=== PATIENT | female | born 1965 | race Caucasian/White ===

== ENCOUNTER 2017-09-16 05:52 | Day surgery (SDC) | payer BC ==
[2017-09-16] MEDS ORDERED: DIPRIVAN 200 MG/20 ML IV ONE (05:53)
[2017-09-16] MEDS ORDERED: Lactated Ringers 1,000 ML IV ONE (06:20)
[2017-09-16] MEDS ORDERED: Lactated Ringers 1,000 ML IV SCH (06:30)
[2017-09-16 11:09] VITALS: BP 143/86; PULSE 56; O2SAT 99
--- NOTE | 2017-09-16 12:47 | OP ---
SURGERY DATE/TIME: 09/16/2017823 PREOPERATIVE DIAGNOSES: 1) Chronic diarrhea. 2) Family history of colon cancer. POSTOPERATIVE DIAGNOSIS: Normal colon. PROCEDURE: Colonoscopy. SURGEON: Jose David Kim M.D. ANESTHESIA: MAC by Aldo Dietz CRNA. ESTIMATED BLOOD LOSS: Minimal. SPECIMENS: Two random cold forceps biopsies taken from the sigmoid colon. DESCRIPTION OF PROCEDURE: After informed written consent was obtained, the patient was taken to the endoscopy suite. She underwent monitored anesthesia and digital rectal exam showed normal sphincter tone and no internal lesions. The scope was inserted into the rectum and sequentially the entire colonic mucosa was traversed. The level of cecum was reached and verified with direct visualization of ileocecal valve. There was a fair amount of liquid stool present. Prep was noted to be fair. Upon withdrawal careful mucosal inspection revealed no obvious mucosal abnormalities. Prior to withdrawal two cold forceps biopsies were taken randomly from the sigmoid colon. Prior to withdrawal retroflexion was within normal limits. The scope was removed and the patient was transferred to the recovery room in good condition.
== END 2017-09-16 11:00 | disposition home or self-care (01) ==
LOC: SDC 05:52
PROVIDERS: ATTEND Family Medicine
PROC: 0DJD8ZZ Inspection of Lower Intestinal Tract, Via Natural or Artificial Opening Endoscopic (ICD-10-PCS; principal; 2017-09-16)
DX: K52.9 Noninfective gastroenteritis and colitis, unspecified (principal); Z80.0 Family history of malignant neoplasm of digestive organs; I10 Essential (primary) hypertension; E03.9 Hypothyroidism, unspecified
CPT/HCPCS: 00810; J2704

== ENCOUNTER 2019-08-28 18:47 | Emergency (ER) | payer BC ==
[2019-08-28] MEDS ORDERED: XYLOCAINE 1% HCL 20 ML MDV IJ ONE (18:48)
[2019-08-28] MEDS ORDERED: Rocephin 1000 MG INJ IM ONE (19:12)
[2019-08-28] MEDS ORDERED: Rocephin 1000 MG INJ ONE (19:20)
--- NOTE | 2019-08-28 20:06 | ERPHSYRPT ---
- History of Present Illness Time Seen by Provider: 08/28/19 19:05 Source: patient Exam Limitations: no limitations Patient Subjective Stated Complaint: pt states she has had a cough for approx 2 weeks. has productive cough. Triage Nursing Assessment: pt alert and oriented. answers questions approp. pt ambulatory with steady gait noted. respirations nonlabored. frequent hacking cough noted, productive with yellow sputum. skin pink warm and dry. Physician History: ppatient presents with the complaint being sick for 2 weeks which started with a cough. Her cough is now productive of white sputum. She been quite hoarse she's been having night sweats. On Friday she went to [facility] and was given Tessalon Perles a steroid shot but is not better. Timing/Duration: week(s) (2) Cough Quality/Degree: severe, productive cough Possible Cause: occasional episodes Modifying Factors: Improves With: activity, nothing Allergies/Adverse Reactions: No Known Drug Allergies Allergy (Verified 08/28/19 19:19) Home Medications: Amitriptyline HCl 100 mg PO BID 08/13/17 [History] Hydrochlorothiazide 25 mg [hydroDIURIL 25 MG] 25 mg PO DAILY 08/13/17 [ History] Ibuprofen 200 mg [Motrin 200 mg] 200 mg PO UD PRN 08/13/17 [History] Levothyroxine Sodium 75 Mcg [Synthroid 75 Mcg] 88 mcg PO DAILY 08/13/17 [ History] Nebivolol HCl [Bystolic] 10 mg PO DAILY 08/13/17 [History] Hx Tetanus, Diphtheria Vaccination/Date Given: Yes Hx Influenza Vaccination/Date Given: Yes Hx Pneumococcal Vaccination/Date Given: No Immunizations Up to Date: Yes - Review of Systems Constitutional: No Fever, No Chills Eyes: No Symptoms Ears, Nose, & Throat: No Symptoms Respiratory: Cough, Dyspnea on Exertion (BERMEO), Wheezing, No Dyspnea Cardiac: No Chest Pain, No Edema, No Syncope Abdominal/Gastrointestinal: No Abdominal Pain, No Nausea, No Vomiting, No Diarrhea Genitourinary Symptoms: No Dysuria Musculoskeletal: No Back Pain, No Neck Pain Skin: No Rash Neurological: No Dizziness, No Focal Weakness, No Sensory Changes Psychological: No Symptoms Endocrine: No Symptoms All Other Systems: Reviewed and Negative - Past Medical History Pertinent Past Medical History: Yes Neurological History: No Pertinent History ENT History: No Pertinent History Cardiac History: Hypertension Respiratory History: No Pertinent History Endocrine Medical History: Hypothyroidism Musculoskeletal History: No Pertinent History GI Medical History: No Pertinent History History: Other Psycho-Social History: No Pertinent History Female Reproductive Disorders: No Pertinent History 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) - Past Surgical History Past Surgical History: Yes Neuro Surgical History: No Pertinent History Cardiac: Other Respiratory: No Pertinent History Gastrointestinal: No Pertinent History Genitourinary: Other Musculoskeletal: No Pertinent History Female Surgical History: Hysterectomy Other Surgical History: kidney biopsy - Social History Smoking Status: Former smoker Exposure to second hand smoke: No Drug Use: none Patient Lives Alone: No - Female History Hx Last Menstrual Period: hyster Hx Now: No - Nursing Vital Signs Nursing Vital Signs: Initial Vital Signs Temperature 100 F 08/28/19 19:04 Pulse Rate 69 08/28/19 19:04 Respiratory Rate 18 08/28/19 19:04 Blood Pressure 203/96 08/28/19 19:04 O2 Sat by Pulse Oximetry 99 08/28/19 19:04 Pain Scale Pain Intensity 1 - Physical Exam General Appearance: no apparent distress, alert Eye Exam: PERRL/EOMI, eyes nml inspection Ears, Nose, Throat Exam: normal ENT inspection, TMs normal, pharynx normal, moist mucous membranes Neck Exam: normal inspection, non-tender, supple, full range of motion Respiratory Exam: lungs clear, crackles/rales, rhonchi, No respiratory distress Cardiovascular Exam: regular rate/rhythm, normal heart sounds Gastrointestinal/Abdomen Exam: soft, No tenderness Back Exam: normal inspection, No CVA tenderness, No vertebral tenderness Extremity Exam: normal inspection, normal range of motion Neurologic Exam: alert, oriented x 3, cooperative, normal mood/affect, sensation nml, No motor deficits Skin Exam: normal color, warm, dry, No rash Lymphatic Exam: No adenopathy SpO2: 98 - Radiology Exams Chest X-ray Interpretation: Interpreted by me, Negative Ordered Tests: Active Orders 24 hr Category Date Time Status CHEST 2 VIEWS (PA AND LAT) Stat Exams 08/28/19 Ordered Medication Summary Discontinued Medications Generic Name Dose Route Start Last Admin Trade Name Freq PRN Reason Stop Dose Admin Ceftriaxone Sodium 1,000 mg 08/28/19 19:12 08/28/19 19:33 Rocephin 1000 Mg Inj IM 08/28/19 19:13 1,000 mg STAT ONE Administration Ceftriaxone Sodium Confirm 08/28/19 19:20 Rocephin 1000 Mg Inj Administered 08/28/19 19:21 Dose 1,000 mg .ROUTE .STK-MED ONE - Progress Progress: unchanged Air Movement: good - Departure Departure Disposition: Home Clinical Impression: Bronchitis Condition: Stable Critical Care Time: No Referrals: TAMMY HUA MD [Primary Care Provider] - Instructions: Cough, Adult (DC) Prescriptions: Cephalexin Mh 500 mg [Keflex 500 mg] 500 mg PO TID #21 capsule
[2019-08-28 20:50] VITALS: BP 144/86; PULSE 64; O2SAT 97
--- NOTE | 2019-08-28 23:41 | XRAY ---
Indication: Cough. Comparison: November 04, 2008. PA/lateral chest again demonstrates normal heart and lungs. Bony thorax intact. No new/acute findings.
== END 2019-08-28 20:20 | disposition home or self-care (01) ==
LOC: ED 18:47
DX: J40 Bronchitis, not specified as acute or chronic (principal)
CPT/HCPCS: 71046; 96372; 99284; J0696